=== PATIENT | female | born 1970 | race Two or more races ===

== ENCOUNTER 2023-11-23 16:19 | Outpatient (REF) | payer OTHER, SELFPAY ==
--- OUTSIDE RECORDS SUMMARY | 2023-11-23 16:23 | XMS_ITS | Clinical Summary ---
Author Name Unknown Organization [facility] Address [place], [place] [address] Care Team Providers Care Solid Waste Engineer Name Role Phone Pcp, No Primary Care Provider Unavailabl e Allergies Active Allergy Reactions Criticality Noted Date Comments Aspirin GI Bleeding 09/14/2016 Hydrocodone Hives 09/21/2016 Latex 01/30/2010 Morphine (Pf) Shortness Of Breath 05/19/2017 Medications Medication Sig Dispensed Refills Start Date End Date Status cholecalciferol (VITAMIN D) 1,000 unit tabletIndications:Vi tamin D deficiency Take 1 tablet by mouth once daily. 30 tablet 12 02/05/2010 Active ferrous gluconate 324 mg (36 mg iron) tabIndications:Anemi a due to acute blood loss Take 1 tablet by mouth once daily with a meal. 90 tablet 1 06/29/2017 Active lovastatin (MEVACOR) 20 mg tabletIndications:Hy perlipidemia with target LDL less than 100 Take 3 tablets by mouth at bedtime. 90 tablet 3 08/13/2017 Active omeprazole magnesium (PRILOSEC OTC ORAL) Take 1 Cap by mouth once daily if needed. Active metFORMIN (GLUCOPHAGE) 500 mg tabletIndications:Ty pe 2 diabetes mellitus without complication, without long-term current use of insulin (HC) Take 1 Tablet (500 mg) by mouth once daily with a meal. 30 Tablet 10/12/2020 Active warfarin (COUMADIN) 1 mg tabletIndications:An ticoagulation monitoring, INR range 2-3,Acute deep vein thrombosis (DVT) of left peroneal vein (HC) Take by mouth 5 mg (5 mg x 1) every Sun, Aline; 6 mg (5 mg x 1 and 1 mg x 1) all other days OR as directed 65 Tablet 1 03/01/2021 Active warfarin (COUMADIN) 5 mg tabletIndications:An ticoagulation monitoring, INR range 2-3,Acute deep vein thrombosis (DVT) of left peroneal vein (HC) Take by mouth 5 mg (5 mg x 1) every Sun, Aline; 6 mg (5 mg x 1 and 1 mg x 1) all other days OR as directed 91 Tablet 1 03/01/2021 Active Active Problems Problem Noted Date Diagnosed Date Choledocholithiasis 10/09/2020 Gallstones 03/20/2020 Moderate episode of recurrent major depressive d isorder 09/28/2017 Myopia of both eyes with astigmatism and presbyo jacki 03/05/2017 Acute deep vein thrombosis (DVT) of left peronea l vein 07/29/2016 Shingles outbreak 07/26/2016 Type II or unspecified type diabetes mellitus without mention of complication, not stated as uncontrolled 09/18/2013 Diabetes mellitus type II 11/02/2012 Overview: a system change updated this record. This will not affect patient care or billing. This comment can be deleted. Hyperlipidemia LDL goal < 100 11/02/2012 Helicobacter pylori (H. pylori) 06/02/2010 Overview: EGD 05/2010 gastritis Other person consulting on behalf of another per son 03/24/2010 Chest pain, unspecified 02/20/2010 Vitamin D deficiency 02/05/2010 Obesity, unspecified 01/31/2010 GERD (gastroesophageal reflux disease) 0 Other pulmonary embolism and infarction 01/31/20 10 Overview: Bilateral pulmonary emboli on chest CT at [facility] 11/26/2009. Placed on Lovenox and Coumadin. Uterus bicornis 01/30/2010 Low back pain 01/30/2010 IBS (irritable bowel syndrome) 01/30/2010 Eoyk-zr-kluy blood transfer 01/30/2010 Overview: Noted September 2009 with demise of both twins, delivered vaginally 10/02/09 at [facility]. Fibroid, uterine 01/30/2010 Overview: Sp embolization by IR 05/19/2017 Fatty liver 01/30/2010 Overview: Seen on transvaginal pelvic and abdominal ultrasounds done at [facility] 01/10/2010. 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 Resolved Problems Problem Noted Date Diagnosed Date Resolved Date Ventral incisional hernia 08/08/2019 Anticoagulation monitoring, INR range 2-3 07/29/2016 06/12/2021 Shingles outbreak 07/26/2016 01/30/2020 Shingles outbreak 07/26/2016 01/30/2020 Shingles outbreak 07/26/2016 01/30/2020 intermediate (current) use of anticoagulants 02/03/2010 11/24/2017 Overview: INR Goal Range: 2.0 - 3.0 Adjustment disorder with depressed mood 04/24/2009 12/08/2018 Immunizations Name Administration Dates Next Due Hepatitis B (Adult) 05/30/2019,09/18/2013,2012 Influenza, IIV3 (Age >=3 years) 04/16/2009 Influenza, IIV4 05/30/2020 Pneumococcal Poly,23-Valent (Pneumovax) 05/19/20 19 Tdap 02/15/2019,07/26/2008 Family History Medical History Relation Name Comments Hypertension Father Uterine cancer Maternal Grandmother Cancer Mother stomach Diabetes Mother Other Other nephew eye turn Heart Disease Paternal Uncle HI Cancer-breast No Family History Cancer-ovarian No Family History Relation Name Status Comments Father Maternal Grandmother Mother Other Paternal Uncle Social History Tobacco Use Types Packs/Day Years Used Date Smoking Tobacco: Never Smokeless Tobacco: Never Tobacco Cessation:Counseling Given: Yes Alcohol Use Standard Drinks/Week Comments No 0 (1 standard drink = 0.6 oz pur e alcohol) PHQ-2 Answer Date Recorded PHQ-2 TOTAL SCORE 2 01/12/2020 Social Connections Answer Date Recorded Frequency of Communication with Friends and Fami ly Not on file 07/26/2021 Financial Resource Strain Answer Date R ecorded Difficulty of Paying Living Expenses Not on file 07/26/2021 Difficulty of Paying Living Expenses Not on file 07/26/2021 Sex and Gender Information Value Date Recorded Sex Assigned at Not on file Gender Identity Not on file Sexual Orientation Not on file Obstetrics History Para Term AB IAB SAB Ectopic Multiple Livin g Live Births 2 0 2 2 Date Outcome GA Total Labor Labor/2nd/3rd Weight Sex Delivery Anes PTL Mary A1 A5 Name Cl in 11/12 09 SAB 10/02 SAB Comments Loss of twins 10/02/09 second abel to twin to twin transfusion. Last Filed Vital Signs Vital Sign Reading Time Taken Comments Blood Pressure 112/70 10/15/2020 1:03 PM CDT Pulse 79 10/15/2020 1:03 PM CDT Temperature 36.6 ??C (97.8 ??F) 10/12/2020 7:53 AM CD T Respiratory Rate 16 10/12/2020 7:53 AM CDT Oxygen Saturation 97% 10/15/2020 1:03 PM CDT Inhaled Oxygen Concentration - - Weight 82.7 kg (182 lb 6.4 oz) 10/15/2020 1:03 P M CDT Height 157.5 cm (5' 2) 09/06/2020 8:06 AM CLERICAL SECRETARY Body Mass Index 33.36 09/06/2020 8:06 AM CLERICAL SECRETARY Plan of Treatment Health Maintenance Due Date Last Done Comments Hepatitis C screening for age 18-79 1989 Colonoscopy through age 75 01/27/2016 Depression screening for age 12+ 01/15/2021 01/16/2020, 01/15/2020, 01/12/2020, Additional history exists Zoster (shingles) series for age 50+ (1 of 2) 2021 Mammogram for age 45-75 02/14/2021 02/15/20, 12/16/2018, 03/18/2015, Additional history exists BMI (ht and wt on same day) for age 18+ 09/06/2021 09/06/2020, 08/14/2020, 03/20/2020, Additional history exists Lipids for age 45-75 02/22/2022 02/22/2017, 09/18/2013, 06/05/2013, Additional history exists COVID-19 vaccine series (2022- season) 2023 Influenza for age 50-64 03/26/2024 05/30/2020, 04/16 Pap test for age 21-65 08/16/2026 , 08/16/2023, 12/16/2018, Additional history exists Tetanus booster 02/15/2029 02/15/2019, 07/2008, 07/26/2008 (Completed outside of [facility]) HIV for age 15-65 Completed 10/26/2008 Tdap Completed 02/15/2019, 07/26/2008 Pneumococcal series for age 6-64 Aged Out 05/19/2019 No longer eligible based on patient's age to complete this topic Medical Devices Implanted Type Area Supervisor Landscape Device Identifier Shelf Expiration Date Model / Serial / Lot Mesh Ventral 6x8in Ventralightst W/Echo Ps - [id number] Implanted:Qty: 1 on 08/10/2019 by Olya Caba DO at [facility] N/A: Abdomen [employer] 04/22/2020 [id number] / / [id number] Procedures Procedure Name Priority Date/Time Associated Diagnosis Comments HPV THIN PREP Routine 08/16/2023 2:15 PM CLERICAL SECRETARY XR MAMMO BILAT SCREENING Routine 02/15/2020 3:12 PM CDT Visit for screening mammogram LIPID PANEL W REFLEX MEASURED LDL Routine 02/22/2017 3:37 PM CDT Hyperlipidemia LDL goal < 100 ANTI HIV 1/2 Routine 10/26/2008 2:35 PM CDT State, Incidental from Last 3 Months or Most Recently Relevant to Health Maintenance Results * HPV HIGH RISK (08/16/2023 2:15 PM CLERICAL SECRETARY) TYPE 16 Negative Negative 08/27/2023 2:47 PM CLERICAL SECRETARY [facility] TYPE 18 Negative Negative 08/27/2023 2:47 PM CLERICAL SECRETARY [facility] OTHER HIGH RISK TYPES Negative Negative 08/27/2023 2:47 PM CLERICAL SECRETARY [facility] Other SPECIMEN FROM UTERINE CERVIX / Unknown 08/16/2023 2:15 PM CLERICAL SECRETARY 08/25/2023 3:26 PM CLERICAL SECRETARY Narrative [facility] - 08/27/2023 2:47 PM CLERICAL SECRETARY HPV types 16, 18, 31, 33, 35, 39, 45, 51, 52, 56, 58, 59, 66 and 68 DNA were undetectable or below the pre-set threshold. Methodology: [employer] Marli 4800 HPV Test Doctor Unknown MICROBIOLOGY [facility] [address] [place] [address], * XR MAMMO BILAT SCREENING (02/15/2020 3:12 PM CDT) Anatomical Region Laterality Modality BREASTS, Breast Left, Breast Right Bilateral Mammography Impressions 02/16/2020 1:54 PM CDT ??There is no radiographic evidence for malignancy. ??Recommend annual mammograms. A lay language report of this examination will be provided to the patient. MAMMOGRAM ASSESSMENT: ??ACR 1 Negative Narrative 02/16/2020 1:54 PM CDT XR MAMMO BILAT SCREENING [[id number]] CLINICAL HISTORY: ??This is an asymptomatic 50 y.o. patient. INDICATION FOR EXAM: Mammogram Screening. TECHNIQUE: CC & MLO views were obtained. ??This digital study was evaluated with the assistance of Computer-Aided Detection. COMPARISON FILM: Yes 12/16/18 [facility] 03/18/15 [facility] FINDINGS: ??Mammographically, the breast tissue is almost entirely fat. ?? There are no dominant masses, suspicious micro calcifications or areas of architectural distortion. Mell Medrano MD MAMMO * (ABNORMAL) LIPID PANEL W REFLEX MEASURED LDL (02/22/2017 3:37 PM CDT) CHOLESTEROL,TOTAL 198 100 - 199 mg/dL 02/22/2017 8:14 PM CDT [facility] TRIGLYCERIDES 173(H) <150 mg/dL 02/22/2017 8:14 PM CDT [facility] HDL CHOLESTEROL 49 >40 mg/dL 7 8:14 PM CDT [facility] NON-HDL CHOLESTEROL 149(H) <145 mg/dl 02/22/2017 8:14 PM CDT [facility] CHOL/HDL RATIO 4.04 <4.50 02/22/2017 8:14 PM CDT [facility] LDL CHOLESTEROL 114 <=130 mg/dL 02/22/2017 8:14 PM CDT [facility] PATIENT STATUS FASTING 02/22/2017 8:14 PM CDT [facility] Blood BLOOD SPECIMEN / Unknown Venipuncture / Unknown 02/22/2017 3:37 PM CDT 02/22/2017 3:37 PM CDT Donya Barreto MD CHEMISTRY [facility] [address] [place] [address], [facility] [address] [place] [address], * hiv (10/26/2008 2:35 PM CDT) ANTI HIV 1/2 Non-reacti ve [facility] Blood specimen (specimen) BLOOD SPECIMEN / Unknown 10/26/2008 2:35 PM CDT 10/26/2008 1:05 PM CDT Aida Rogers SEND OUTS [facility] [place]NAL ZIP [id number] [address] [place] [address] from Last 3 Months or Most Recently Relevant to Health Maintenance Advance Directives * Full Code (Latest Code Status on File) Date Activated Date Inactivated Comments 10/09/2020 11:26 AM 10/12/2020 4:53 PM Question Answer Comments Code Status Discussion: Discussed * Full Code Date Activated Date Inactivated Comments 08/10/2019 11:31 AM 08/11/2019 12:55 PM Question Answer Comments Code Status Discussion: Discussed Care Teams Solid Waste Engineer Relationship Specialty Start Date End Date Pcp, No . PCP - General 08/06/21
--- NOTE | 2023-11-23 16:40 | MM_ITS ---
Patient: JONAH PÉREZ Facility:?[facility] Patient ID:?[id number] Site Patient ID:?[id number]. Site :?[id number] Study:?XRay-Breast Bilateral 3D W CAD-11/23/2023 8:03:04 PM Ordering Physician:?DR. LYNCH Final Report: BILATERAL SCREENING MAMMOGRAM WITH COMPUTER-AIDED DETECTION AND TOMOSYNTHESIS TECHNIQUE: CC and MLO views were obtained. These mammographic images have been obtained using full-field digital technique. These mammographic images were interpreted with the benefit of computer-aided detection. Breast Tomosynthesis was used in this interpretation. COMPARISON FILM: 02/15/20, 12/16/18, 03/18/15. FINDINGS: There are scattered areas of fibroglandular density IMPRESSION: There is no radiographic evidence for malignancy. ASSESSMENT: BI-RADS Category 1: Negative RECOMMENDATION: Routine screening mammogram in 1 year. A lay language report of this examination will be provided to the patient. Son Oliveros M.D. Diagnostic Radiologist [email or web address] CHAPARRO/trey Transcribed: 1:33 p.mHelga yang/Dictated by: Son Oliveros MD @ 11/25/2023 12:49:00 PM Signed by:?Son Oliveros MD @11/25/2023 1:50:13 PM (Electronic Signature)
[2023-11-23 17:11] LABS: Creatinine Urine 71.3 mg/dL
[2023-11-23 17:15] LABS: Microalbumin Creatinine Ratio 20 mg/g (0-30); Microalbumin Urine 2 mg/dL
[2023-11-23 18:12] LABS: Albumin* 4.4 g/dL (3.3-5.0); Chloride* 102 mmol/L (96-114); Sodium* 138 mmol/L (135-149)
[2023-11-23 18:13] LABS: Potassium* 3.9 mmol/L (3.6-5.1)
[2023-11-23 18:14] LABS: Cholesterol* 219 mg/dL (90-199)
[2023-11-23 18:15] LABS: Alanine Aminotransferase* 52 U/L (4-35); Alkaline Phosphatase* 150 U/L (40-150); Anion Gap 11 mEq/L (7-15); Aspartate Amino Transferase* 37 U/L (12-35); Bilirubin Total* 0.3 mg/dL (0.1-1.5); Blood Urea Nitrogen* 17 mg/dL (7-30); Calcium* 9.5 mg/dL (8.4-10.6); Carbon Dioxide* 25 mmol/L (20-32); Creatinine* 0.5 mg/dL (0.5-1.5); Estimated Glomerular Filt Rate 113 ml/min; Glucose* 287 mg/dL (60-115); Total Protein* 8.1 g/dL (6.0-8.3); Triglycerides* 289 mg/dL (40-149)
[2023-11-23 18:16] LABS: HDL Cholesterol* 57 mg/dL (>=50); LDL Cholesterol Calculated 104 mg/dL (<100)
== END 2023-11-23 16:20 | disposition home or self-care (01) ==
LOC: MAMMO 16:19
PROVIDERS: PCP Nurse Practitioner Family; Visit Provider Nurse Practitioner Family
DX: Z12.31 Encounter for screening mammogram for malignant neoplasm of breast (principal); E11.65 Type 2 diabetes mellitus with hyperglycemia
CPT/HCPCS: 36415; 77063; 77067; 80053; 80061; 82043; 82570; 83036